=== PATIENT | female | born 1990 | race Two or more races ===

== ENCOUNTER 2024-06-12 23:13 | Emergency (ER) | payer SELFPAY ==
[~2024-06-12] VITALS: Ht 170.2 cm; Wt 95.0 kg
[2024-06-12 23:24] VITALS: O2SAT 99
[2024-06-12 23:50] VITALS: TEMP 36.50292
[2024-06-13] MEDS: LEVETIRACETAM 500MG TABLET PO ONE (00:02)
[2024-06-13] MEDS ORDERED: KEPP500 MT (00:34)
[2024-06-13 00:50] VITALS: BP 123/86; PULSE 69; RESP 15; O2SAT 99
== END 2024-06-13 00:51 | disposition home or self-care (01) ==
LOC: ER 23:13
DX: G40.909 Epilepsy, unspecified, not intractable, without status epilepticus (principal); D64.9 Anemia, unspecified; R42 Dizziness and giddiness; R51.9 Headache, unspecified; Z88.5 Allergy status to narcotic agent
CPT/HCPCS: 99283